=== PATIENT | female | born 1990 | race Two or more races ===

== ENCOUNTER 2017-08-25 19:46 | Inpatient (IN) | payer MEDICAID ==
[~2017-08-25] VITALS: Ht 147.3 cm; Wt 56.7 kg
[2017-08-25] MEDS ORDERED: NKM (19:52)
[2017-08-25 20:10] VITALS: BP 126/76
[2017-08-25] MEDS ORDERED: Morphine Sulfate 2mg/ml Inj IVP ONE (20:15)
[2017-08-25 20:33] LABS: APPEARANCE,URINE CLEAR; KETONES,URINE NEGATIVE (NEGATIVE); LEUKOCYTE ESTERASE ,URINE NEGATIVE (NEGATIVE); NITRITE,URINE NEGATIVE (NEGATIVE); PH,URINE 7 (4.5-8.0); PROTEIN,URINE NEGATIVE (NEGATIVE); UROBILINOGEN,URINE NORMAL MG/DL (0.0-1.0)
[2017-08-25 20:36] LABS: BASOPHILS % (AUTO) 0.8 % (0.0-2.0); EOSINOPHILS % (AUTO) 1.1 % (0.0-3.0); MEAN CORPUSCULAR HEMOGLOBIN 30.1 PG (27.0-31.0); MEAN CORPUSCULAR HGB CONC 32.4 G/DL (32.0-36.0); MEAN CORPUSCULAR VOLUME 93 FL (80-99); MEAN PLATELET VOLUME 7.4 FL (6.5-10.1); MONOCYTES % (AUTO) 2.9 % (1.0-10.0); NEUTROPHILS % (AUTO) 78.3 % (45.0-75.0); PLATELET COUNT 235 K/UL (150-450); RED BLOOD COUNT 4.21 M/UL (4.20-5.40); RED CELL DISTRIBUTION WIDTH 11.4 % (11.6-14.8); WHITE BLOOD COUNT 15.1 K/UL (4.8-10.8)
[2017-08-25 20:43] LABS: BACTERIA,URINE OCCASIONAL /HPF; RBC,URINE 0-2 /HPF (0 - 2); SQUAMOUS EPITHELIAL CELL,UR OCCASIONAL /LPF (NONE/OCC); WBC,URINE 0-2 /HPF (0 - 2)
[2017-08-25 20:44] LABS: ANION GAP 9 mmol/L (5-15); CALCIUM 8.7 MG/DL (8.5-10.1); CARBON DIOXIDE 26 MMOL/L (21-32); CHLORIDE 104 MMOL/L (98-107); CREATININE 0.8 MG/DL (0.55-1.30); GLOMERULAR FILTRATION RATE > 60 mL/min (>60); POTASSIUM 3.5 MMOL/L (3.5-5.1); SODIUM 139 MMOL/L (136-145)
[2017-08-25 20:48] LABS: ALANINE AMINOTRANSFERASE 32 U/L (12-78); ALBUMIN/GLOBULIN RATIO 0.9 (1.0-2.7); ASPARTATE AMINO TRANSFERASE 19 U/L (15-37); LIPASE 178 U/L (73-393); TOTAL PROTEIN 7.6 G/DL (6.4-8.2)
[2017-08-25 21:05] VITALS: BP 122/74
[2017-08-25 22:05] VITALS: BP 126/74
[2017-08-25] MEDS ORDERED: Ketorolac 30mg Inj IV ONE (22:30)
[2017-08-25] MEDS ORDERED: NS 500ML ONE (23:07)
[2017-08-25 23:20] VITALS: BP 118/71
[2017-08-26 00:30] VITALS: BP 118/74
[2017-08-26] MEDS ORDERED: Norco 5mg/325mg tab ORAL PRN (01:15)
[2017-08-26 04:00] VITALS: BP 123/67
[2017-08-26 08:00] VITALS: BP 111/73
--- NOTE | 2017-08-26 08:12 | History & Physical ---
History and Physical History & Physicial 26 year old female admitted with acute abdominal pain. [place] noted to have right hemorrhagic ovarian mass like lesion with active extravasation of dye. OB called to evaluated; no reported fevers. patient with some diarrhea PMH otherwise negative MEDS and ALLERGIES noted ROS otherwise negative PHYSICAL EXAM WDWN NAD clear breath sounds bilaterally without rhonchi or wheeze [id number] without MRG NABS no HSM; mild abdominal tenderness no CCE nonfocal Laboratory Tests Test 08/25/17 19:53 08/25/17 20:20 Urine Color Pale yellow Urine Appearance Clear Urine pH 7 (4.5-8.0) Urine Specific [place] 1.010 (1.005-1.035) Urine Protein Negative (NEGATIVE) Urine Glucose (UA) Negative (NEGATIVE) Urine Ketones Negative (NEGATIVE) Urine Occult Blood 1+ (NEGATIVE) H Urine Nitrite Negative (NEGATIVE) Urine Bilirubin Negative (NEGATIVE) Urine Urobilinogen Normal MG/DL (0.0-1.0) Urine Leukocyte Esterase Negative (NEGATIVE) Urine RBC 0-2 /HPF (0 - 2) Urine WBC 0-2 /HPF (0 - 2) Urine Squamous Epithelial Cells Occasional /LPF Urine Bacteria Occasional /HPF (NONE) Urine HCG, Qualitative Negative White Blood Count 15.1 K/UL (4.8-10.8) H Red Blood Count 4.21 M/UL (4.20-5.40) Hemoglobin 12.7 G/DL (12.0-16.0) Hematocrit 39.2 % (37.0-47.0) Mean Corpuscular Volume 93 FL (80-99) Mean Corpuscular Hemoglobin 30.1 PG (27.0-31.0) Mean Corpuscular Hemoglobin Concent 32.4 G/DL (32.0-36.0) Red Cell Distribution Width 11.4 % (11.6-14.8) L Platelet Count 235 K/UL (150-450) Mean Platelet Volume 7.4 FL (6.5-10.1) Neutrophils (%) (Auto) 78.3 % (45.0-75.0) H Lymphocytes (%) (Auto) 17.0 % (20.0-45.0) L Monocytes (%) (Auto) 2.9 % (1.0-10.0) Eosinophils (%) (Auto) 1.1 % (0.0-3.0) Basophils (%) (Auto) 0.8 % (0.0-2.0) Prothrombin Time 10.0 SEC (9.30-11.50) Prothromb Time International Ratio 1.0 (0.9-1.1) Activated Partial Thromboplast Time 25 SEC (23-33) Sodium Level 139 MMOL/L (136-145) Potassium Level 3.5 MMOL/L (3.5-5.1) Chloride Level 104 MMOL/L (98-107) Carbon Dioxide Level 26 MMOL/L (21-32) Anion Gap 9 mmol/L (5-15) Blood Urea Nitrogen 9 mg/dL (7-18) Creatinine 0.8 MG/DL (0.55-1.30) Estimat Glomerular Filtration Rate > 60 mL/min (>60) Glucose Level 106 MG/DL (74-106) Calcium Level 8.7 MG/DL (8.5-10.1) Total Bilirubin 0.3 MG/DL (0.2-1.0) Aspartate Amino Transf (AST/SGOT) 19 U/L (15-37) Alanine Aminotransferase (ALT/SGPT) 32 U/L (12-78) Alkaline Phosphatase 70 U/L (46-116) Total Protein 7.6 G/DL (6.4-8.2) Albumin 3.7 G/DL (3.4-5.0) Globulin 3.9 g/dL Albumin/Globulin Ratio 0.9 (1.0-2.7) L Lipase 178 U/L (73-393) IMPRESSION hemorrhagic cyst elevated WBC 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
--- NOTE | 2017-08-26 09:51 | Diagnostic Imaging Report ---
Indication: Pelvic pain Technique: Transabdominal and endovaginal pelvic ultrasound. Comparison: CT abdomen and pelvis 08/25/17 Findings: Uterus measures 8.7 x 3.3 cm and is unremarkable. The endometrial echo complex measures 7 mm. There is heterogeneous fluid in the pelvis. Left ovary measures 2.1 x 2.3 cm and is grossly unremarkable. There is a right adnexal heterogeneous mass measuring 5.6 x 5.7 cm. Impression: Reportedly negative . Heterogeneous mass in the right adnexa grossly measuring 5.6 x 5.7 cm suggestive of hemorrhagic cyst or clot. Underlying right ovarian lesion cannot be excluded. Clinical correlation recommended. Hemoperitoneum. Please refer to CT abdomen and pelvis for additional findings.
--- NOTE | 2017-08-26 10:00 | Diagnostic Imaging Report ---
Indication: Abdominal pain Technique: CT of the abdomen and pelvis utilizing automated exposure control with intravenous contrast. Venous scanning performed. CT dose: Total DLP 620 mGycm; CTDI vol 13.5 mGy Comparison: None Findings: Lung bases are clear. The liver, adrenal glands, spleen and pancreas are unremarkable. Cholecystectomy clips are present. The appendix is normal. Bladder is grossly unremarkable. There is an approximately 4.5 x 3.8 cm heterogeneous hyperdense mass in the right adnexa. There is also linear high density posterior to the right adnexal mass. Small to moderate high density free fluid is noted in the pelvis. There is also trace fluid adjacent to the liver and spleen. No free intraperitoneal air is identified. The osseous structures demonstrate no acute abnormality. Impression: Approximately 4.5 x 3.8 cm heterogeneous slightly hyperdense mass in the right adnexa suggestive of a hemorrhagic cyst. Linear high density posterior to this mass suggestive of active contrast extravasation/hemorrhage. Small to moderate hemoperitoneum. Gynecologic evaluation recommended. Cholecystectomy. The above report is concordant with preliminary reading by [facility]. The CT scanner at [facility] is accredited by the [employer] and the scans are performed using protocols designed to limit radiation exposure to as low as reasonably achievable to attain images of sufficient resolution adequate for diagnostic evaluation.
[2017-08-26 10:03] LABS: BASOPHILS % (AUTO) 0.6 % (0.0-2.0); EOSINOPHILS % (AUTO) 0.7 % (0.0-3.0); LYMPHOCYTES % (AUTO) 18.5 % (20.0-45.0); MEAN CORPUSCULAR HEMOGLOBIN 31.7 PG (27.0-31.0); MEAN CORPUSCULAR HGB CONC 34.3 G/DL (32.0-36.0); MEAN CORPUSCULAR VOLUME 92 FL (80-99); MEAN PLATELET VOLUME 7.5 FL (6.5-10.1); MONOCYTES % (AUTO) 6.8 % (1.0-10.0); NEUTROPHILS % (AUTO) 73.4 % (45.0-75.0); PLATELET COUNT 280 K/UL (150-450); RED BLOOD COUNT 3.86 M/UL (4.20-5.40); RED CELL DISTRIBUTION WIDTH 11.4 % (11.6-14.8)
[2017-08-26 12:00] VITALS: BP 107/64
[2017-08-26 16:00] VITALS: BP 109/70
[2017-08-26 20:00] VITALS: BP 117/72
[2017-08-27] VITALS: BP 111/68
[2017-08-27 04:22] VITALS: BP 97/68
--- NOTE | 2017-08-27 07:56 | General Progress Note ---
Assessment/Plan Assessment/Plan IMPRESSION hemorrhagic cyst hemoperitoneum anemia PLAN RISK MGR evaluation pain management hydration no clear need for antibiotics dc once stable Subjective Allergies: Uncoded Allergies: SEAFOOD (Allergy, Unknown, 08/26/17) Subjective still awaiting RISK MGR to see patient Objective Last 24 Hour Vital Signs Date Time Temp Pulse Resp B/P (MAP) Pulse Ox O2 Delivery O2 Flow Rate FiO2 08/27/17 04:25 Room Air 08/27/17 04:22 98.2 87 19 97/68 97 Room Air 08/27/17 01:47 98.5 08/27/17 00:00 98.4 75 17 111/68 100 Room Air 08/26/17 20:00 98.5 99 17 117/72 99 Room Air 08/26/17 20:00 Room Air 08/26/17 16:00 98.2 77 18 109/70 100 Room Air 08/26/17 12:00 98.0 83 18 107/64 100 Room Air 08/26/17 08:00 98.1 77 18 111/73 100 Room Air Laboratory Tests 08/26/17 09:47: White Blood Count 10.0, Red Blood Count 3.86L, Hemoglobin 12.2, Hematocrit 35.7L , Mean Corpuscular Volume 92, Mean Corpuscular Hemoglobin 31.7H, Mean Corpuscular Hemoglobin Concent 34.3, Red Cell Distribution Width 11.4L, Platelet Count 280, Mean Platelet Volume 7.5, Neutrophils (%) (Auto) 73.4, Lymphocytes (%) (Auto) 18.5L, Monocytes (%) (Auto) 6.8, Eosinophils (%) (Auto) 0.7, Basophils (%) (Auto) 0.6 Height (Feet): 4 Height (Inches): 10.00 Weight (Pounds): 125 Objective WDWN NAD clear breath sounds bilaterally without rhonchi or wheeze [id number] without MRG NABS mild abdominal tenderness no HSM no CCE nonfocal IRMA VIZCARRA Aug 27, 2017 07:56
[2017-08-27 08:00] VITALS: BP 100/67
--- NOTE | 2017-08-27 08:31 | Emergency Room Report ---
History of Present Illness General Chief Complaint: Abdominal Pain Source: Patient Present Illness HPI Patient is a 26-year-old female presented after increased abdominal pain. Patient gradual onset of symptoms. Patient recent onset of pain approximately 4 hours prior to arrival with lower abdominal pain. The patient reports breast- feeding. She had a child was apparently 2 years old. The patient states that she been having increased pain to her lower abdomen. Sharp in nature worse with ambulation. She denies any fever or vaginal discharge. She denies vomiting. She reports having one episode of loose stools. Allergies: Uncoded Allergies: SEAFOOD (Allergy, Unknown, 08/26/17) Patient History Past Medical History: see triage record Last Menstrual Period: aug 08 Now: No : 1 Reviewed Nursing Documentation: PMH: Agreed, PSxH: Agreed Nursing Documentation-PMH Hx Cardiac Problems: No Hx Cancer: No Hx Gastrointestinal Problems: No Hx Neurological Problems: No Review of Systems All Other Systems: negative except mentioned in HPI Physical Exam Vital Signs Date Time Temp Pulse Resp B/P (MAP) Pulse Ox O2 Delivery O2 Flow Rate FiO2 08/25/17 19:48 97.9 89 18 120/78 98 Room Air Sp02 EP Interpretation: reviewed, normal General Appearance: normal inspection, well appearing, no apparent distress, alert, GCS 15 Head: atraumatic ENT: normal ENT inspection, hearing grossly normal, normal voice Neck: normal inspection, full range of motion, supple, no bony tend Respiratory: normal inspection, lungs clear, normal breath sounds, no respiratory distress, no retraction, no wheezing Cardiovascular #1: regular rate, rhythm, no edema Gastrointestinal: normal inspection, soft, no guarding, no hernia, tenderness - lower abdomen, suprapubic pain Genitourinary: no CVA tenderness Musculoskeletal: normal inspection, back normal, normal range of motion Neurologic: normal inspection, alert, responsive, speech normal Psychiatric: normal inspection, judgement/insight normal, mood/affect normal Skin: normal inspection, normal color, no rash Medical Decision Making Diagnostic Impression: Primary Impression: Abdominal pain Additional Impression: Hemorrhagic ovarian cyst ER Course Patient presented for abdominal pain. Differential diagnoses included ischemic bowel, appendicitis, perforated viscus, abdominal aortic aneurysm, inferior myocardial infarction, viral gastroenteritis Because of complexity of patient's case laboratory testing and imaging studies were ordered. The patient was noted to have initial adequate hemoglobin. I white blood count and be elevated at 15,000. Patient was given IV pain medications. A CT abdomen pelvis read by radiology showed right-sided masslike lesion with active contrast extravasation consistent with hemorrhagic ovarian cyst. The patient was discussed with Dr. Kris Medel for BENCH JEWELER consult. He recommended monitoring of H&H as well as Toradol every [address] Garrett Vasquez was contacted for inpatient management. Labs Test 08/25/17 19:53 08/25/17 20:20 08/26/17 09:47 Urine Color Pale yellow Urine Appearance Clear Urine pH 7 (4.5-8.0) Urine Specific [place] 1.010 (1.005-1.035) Urine Protein Negative (NEGATIVE) Urine Glucose (UA) Negative (NEGATIVE) Urine Ketones Negative (NEGATIVE) Urine Occult Blood 1+ (NEGATIVE) Urine Nitrite Negative (NEGATIVE) Urine Bilirubin Negative (NEGATIVE) Urine Urobilinogen Normal MG/DL (0.0-1.0) Urine Leukocyte Esterase Negative (NEGATIVE) Urine RBC 0-2 /HPF (0 - 2) Urine WBC 0-2 /HPF (0 - 2) Urine Squamous Epithelial Cells Occasional /LPF Urine Bacteria Occasional /HPF (NONE) Urine HCG, Qualitative Negative Prothrombin Time 10.0 SEC (9.30-11.50) Prothromb Time International Ratio 1.0 (0.9-1.1) Activated Partial Thromboplast Time 25 SEC (23-33) Sodium Level 139 MMOL/L (136-145) Potassium Level 3.5 MMOL/L (3.5-5.1) Chloride Level 104 MMOL/L (98-107) Carbon Dioxide Level 26 MMOL/L (21-32) Anion Gap 9 mmol/L (5-15) Blood Urea Nitrogen 9 mg/dL (7-18) Creatinine 0.8 MG/DL (0.55-1.30) Estimat Glomerular Filtration Rate > 60 mL/min (>60) Glucose Level 106 MG/DL (74-106) Calcium Level 8.7 MG/DL (8.5-10.1) Total Bilirubin 0.3 MG/DL (0.2-1.0) Aspartate Amino Transf (AST/SGOT) 19 U/L (15-37) Alanine Aminotransferase (ALT/SGPT) 32 U/L (12-78) Alkaline Phosphatase 70 U/L (46-116) Total Protein 7.6 G/DL (6.4-8.2) Albumin 3.7 G/DL (3.4-5.0) Globulin 3.9 g/dL Albumin/Globulin Ratio 0.9 (1.0-2.7) Lipase 178 U/L (73-393) White Blood Count 10.0 K/UL (4.8-10.8) Red Blood Count 3.86 M/UL (4.20-5.40) Hemoglobin 12.2 G/DL (12.0-16.0) Hematocrit 35.7 % (37.0-47.0) Mean Corpuscular Volume 92 FL (80-99) Mean Corpuscular Hemoglobin 31.7 PG (27.0-31.0) Mean Corpuscular Hemoglobin Concent 34.3 G/DL (32.0-36.0) Red Cell Distribution Width 11.4 % (11.6-14.8) Platelet Count 280 K/UL (150-450) Mean Platelet Volume 7.5 FL (6.5-10.1) Neutrophils (%) (Auto) 73.4 % (45.0-75.0) Lymphocytes (%) (Auto) 18.5 % (20.0-45.0) Monocytes (%) (Auto) 6.8 % (1.0-10.0) Eosinophils (%) (Auto) 0.7 % (0.0-3.0) Basophils (%) (Auto) 0.6 % (0.0-2.0) Last Vital Signs Date Time Temp Pulse Resp B/P (MAP) Pulse Ox O2 Delivery O2 Flow Rate FiO2 08/27/17 04:25 Room Air 08/27/17 04:22 98.2 87 19 97/68 97 Status: unchanged Disposition: PLACE IN OBSERVATION Condition: Serious Referrals: NOT CHOSEN MANDI/,REFERRING (PCP) Roland Andrews Aug 27, 2017 08:31
[2017-08-27] MEDS ORDERED: Ketorolac 30mg Inj IV ONE (09:30)
--- NOTE | 2017-08-27 09:46 | General Progress Note ---
Progress Note Progress Note 26 yo with right abdominal pain Patient is 3 yrs s/p delivery Today, Much improved pain at rest swing tender on palpation in RLQ - much improved per patient WBC improved and now WNL U/S & CT are consistent with ruptured hemorrhagic cyst Impression: Clinical course, labs, and U/S & CT are all consistent with Right Ruptured Hemorrhagic Cyst Resolving as expected Recommendations: Discharge to home At home: Ibuprofen 400 mg (2 Advils) q 6 hrs for 2 days Followup with patient's Military Nurse in 2 wks for repeat U/S Toradol 30 mg IV given now If still here in 6 hrs, give another Toradol 30 mg JUAN MERRITT Aug 27, 2017 09:46
[2017-08-27] MEDS ORDERED: NS 500ML ONE (11:12)
--- NOTE | 2017-08-27 15:33 | Cardiology Report ---
APPROVED REPORT EKG Measurement Heart [id number] Normal sinus rhythm Nonspecific T wave abnormality Abnormal ECG
[2017-08-28] MEDS ORDERED: IBUPROFEN600 MG ORAL (14:48)
--- NOTE | 2017-08-28 14:49 | Discharge Summary ---
Discharge Summary Hospital Course Date of Admission Aug 25, 2017 at 23:06 Date of Discharge Aug 27, 2017 at 11:13 Admitting Diagnosis ABDOMINAL PAIN JAZZMINE Cooper is a 26 year old female who was admitted on Aug 25, 2017 at 23: 06 for Abdominal Pain Hospital Course dc summary #[id number] Discharge Medications New Medications: Ibuprofen* (Motrin*) 600 Mg Tablet 400 MG ORAL Q6HR, #8 TAB 0 Refills Discharge Condition Upon Discharge: stable Discharge Disposition Patient was discharged to Home (01) Discharge Diagnoses: Discharge Instructions Discharge Instructions Special Instructions I have been assigned to complete a D/C Summary on this account. I was not involved in the patient management Radha Merida NP ([place]) Aug 28, 2017 14:49
--- NOTE | 2017-08-28 20:30 | Discharge Summary 2 SIG ---
DATE OF ADMISSION: 08/25/2017 DATE OF DISCHARGE: 08/27/2017 REASON FOR ADMISSION: 26-year-old female presented to emergency room with complaint of gradual onset of abdominal pain. The pain started about 4 hours prior to arrival to ED. The pain worse with ambulation. The patient reported breast-feeding. She denied fevers/chills,vaginal discharge. No vomiting. One episode of loose stool. No significant past medical history. Vital signs were stable in the emergency department. Leukocytosis -15.1. Chemistry stable. Urinalysis with negative hCG, and +1 occult blood in the urine, otherwise no evidence of infection. The patient had undergone CT of the abdomen and pelvis which revealed finding of the 4.5 x 3.8 cm heterogeneous, slightly hyperdense mass in the right adnexa suggestive of hemorrhagic cyst. It also showed [id number] hemoperitoneum. The patient was admitted for further management with diagnosis of right hemorrhagic ovarian cyst and hemoperitoneum. HOSPITAL COURSE: The patient was admitted. The patient started on the IV fluids. Pain management provided. GROUND OPERATIONS SUPERVISOR consult was requested. The patient had undergone transvaginal ultrasound which revealed evidence of hemoperitoneum as well as reportedly negative , heterogeneous mass in the right adnexa grossly measuring 5.6 x 5.7 cm suggestive of hemorrhagic cyst or clot. CHIEF LEGAL OFFICER had seen and evaluated the patient. Toradol IV given after evaluation. Rigging Loft Mechanic cleared the patient for discharge home on ibuprofen 400 mg every 6 hours for 2 days. Follow up with CHIEF LEGAL OFFICER in 2 weeks to repeat ultrasound. The patient was stable for discharge. FINAL DIAGNOSES: 1. Right ruptured hemorrhagic ovarian cyst. 2. Hemoperitoneum. 3. Abdominal pain secondary to ruptured hemorrhagic cyst, -improved. DISCHARGE MEDICATIONS: Please refer to medication reconciliation list. DISCHARGE INSTRUCTIONS: The patient was discharged home. Follow up with CHIEF LEGAL OFFICER as an outpatient in 2 weeks to repeat ultrasound. Garrett Vasquez M.D. I have been assigned to dictate discharge summary on this account and I was not involved in the patient's management. Radha Merida N.P. (Vanchtein) DR: MEIR JOB#: [id number] CC: [place]
== END 2017-08-27 11:13 | disposition home or self-care (01) | DRG 532 ==
LOC: EMR 20:00 → EDBEDREQ 22:38 → 4E 23:06 → OBSVTOIN 23:06 → EDBEDREQ 23:13
DX: N83.201 Unspecified ovarian cyst, right side (principal); K66.1 Hemoperitoneum; D64.9 Anemia, unspecified; R10.9 Unspecified abdominal pain
CPT/HCPCS: 36415; 74177; 76856; 80053; 81003; 81025; 83690; 85025; 85610; 85730; 86900; 86901; 93005; 99285; J2405